=== PATIENT | female | born 1975 | race Caucasian/White ===

== ENCOUNTER 2022-05-12 12:59 | Emergency (ER) | payer OTHER ==
[2022-05-12] MEDS ORDERED: Azithromycin 250 MG TAB ONE (15:16)
== END 2022-05-12 15:20 | disposition home or self-care (01) ==
LOC: BURERS 12:59
DX: J18.9 Pneumonia, unspecified organism (principal); Z20.822 Contact with and (suspected) exposure to COVID-19; I10 Essential (primary) hypertension; Z79.899 Other long term (current) drug therapy
CPT/HCPCS: 71045; 87081; 87430; 87804; U0003; U0005